=== PATIENT | female | born 1960 | race American Indian/Alaskan Native ===

== ENCOUNTER 2020-01-28 17:21 | Emergency (ER) | payer SELFPAY ==
[2020-01-28 18:10] VITALS: BP 168/91
--- NOTE | 2020-01-28 18:13 | Event Note ---
ED Screening Note ED Screening Note: pt was seen 8 days ago had a suture repair and a fx did not see orthopedic she has not changed the dressing since she had the repair done 8 days ago the dressing is adhered to the skin needs to soak and ACC mark unable to examine at this time This initial assessment/diagnostic orders/clinical plan/treatment(s) is/are subject to change based on patients health status, clinical progression and re- assessment by fellow clinical providers in the ED. Further treatment and workup at subsequent clinical providers discretion. Patient/guardian urged not to elope from the ED as their condition may be serious if not clinically assessed and managed. Initial orders include: ACC eval
[2020-01-28] MEDS ORDERED: CLINDAMYCIN 150 MG/ML VIAL 6 ML IM STA (20:51)
[2020-01-28] MEDS ORDERED: oxyCODONE /ACETAMINOPHEN 5-325MG TAB PO ONE (20:51)
--- NOTE | 2020-01-28 21:03 | Emergency Department Report ---
- General Chief Complaint: Laceration/Recheck/Suture Stated Complaint: STITCHES REMOVED Time Seen by Provider: 01/28/20 18:06 Source: patient Mode of arrival: Ambulatory Limitations: No Limitations - History of Present Illness Initial Comments: 59-year-old female past no significant past medical history was seen emerge department about 1 week ago for lawnmower blade verge finger which she sustained a fracture to her distal phalanx and laceration resulting in an open fracture she was discharged home with a dressing Keflex and pain pain medications. She was advised to keep on her dressing until to follow-up with the with the primary care in 1 week which she is decided come to emergency department as she cannot get an appointment with the primary care until next week. She reports throbbing pain to the finger and occasional drainage X-ray report from the previous visit is as follows [facility] [address] [place] [address] XRay Report Signed Patient: OFELIA FARMER MR#: [id number] : 1960 Acct:[id number] Age/Sex: 59 / F ADM Date: 01/20/20 Loc: ED Attending Dr: Ordering Physician: GENIA BARNES Date of Service: 01/20/20 Procedure(s): XR finger(s) 2+V RT Accession Number(s): [id number] cc: GENIA BARNES Fluoro Time In Minutes: RIGHT HAND 3 VIEWS INDICATION / CLINICAL INFORMATION: Compression injury COMPARISON: None available. FINDINGS: BONES / JOINT(S): Crushtype injury involving the tuft of the distal phalanx of the fourth digit. Fracture dislocation at the distal interphalangeal joint of the fourth digit with posterior avulsion. SOFT TISSUES: Soft tissue injury fourth digit with amputation of the tuft. ADDITIONAL FINDINGS: None. Signer Name: Neil Fuentes MD Signed: 01/20/2020 9:28 PM Workstation Name: [id number] Transcribed By: RAQUEL Dictated By: Neil Fuentes MD Electronically Authenticated By: Neil Fuentes MD Signed Date/Time: 01/20/208 - Related Data Previous Rx's Medication Instructions Recorded Last Taken Type Cephalexin [Keflex] 750 mg PO BID #10 capsule 01/21/20 Unknown Rx HYDROcodone/APAP 5-325 [[place] 1 each PO Q6HR PRN #12 tablet 01/21/20 Unknown Rx 5/325] Ibuprofen [Motrin] 800 mg PO Q8HR #40 tablet 01/21/20 Unknown Rx Chlorhexidine Gluconate 5 ml TP BID #240 liquid 01/28/20 Unknown Rx [Antiseptic Skin Cleanser] Clindamycin [Clindamycin CAP] 150 mg PO Q6HR #40 capsule 01/28/20 Unknown Rx traMADoL [Ultram] 50 mg PO Q6HR PRN #20 tablet 01/28/20 Unknown Rx Allergies Allergy/AdvReac Type Severity Reaction Status Date / Time No Known Allergies Allergy Unverified 01/20/20 20:08 ED Review of Systems ROS: Stated complaint: STITCHES REMOVED Other details as noted in HPI Comment: All other systems reviewed and negative ED Past Medical Hx - Past Medical History Previous Medical History?: No - Surgical History Past Surgical History?: Yes Additional Surgical History: gallstones removed. - Social History Smoking Status: Never Smoker Substance Use Type: None - Medications Home Medications: Home Medications Medication Instructions Recorded Confirmed Last Taken Type Cephalexin [Keflex] 750 mg PO BID #10 capsule 01/21/20 Unknown Rx HYDROcodone/APAP 5-325 [[place] 1 each PO Q6HR PRN #12 tablet 01/21/20 Unknown Rx 5/325] Ibuprofen [Motrin] 800 mg PO Q8HR #40 tablet 01/21/20 Unknown Rx Chlorhexidine Gluconate 5 ml TP BID #240 liquid 01/28/20 Unknown Rx [Antiseptic Skin Cleanser] Clindamycin [Clindamycin CAP] 150 mg PO Q6HR #40 capsule 01/28/20 Unknown Rx traMADoL [Ultram] 50 mg PO Q6HR PRN #20 tablet 01/28/20 Unknown Rx ED Physical Exam - General Limitations: No Limitations - Neck Neck exam: Present: normal inspection - Respiratory Respiratory exam: Present: normal lung sounds bilaterally - Extremities Exam Extremities exam: Present: tenderness (There is tenderness to the injured site at the distal tip the sutures are in place some serosanguineous drainage is coming from the wound no lymphangitis mild redness is noted is noted. Discoloration to the skin with some swelling and apparent sloughing of tissue. Pulses 2+). Absent: calf tenderness ED Course Vital Signs 01/28/20 18:08 Temperature 98.8 F Pulse Rate 82 Respiratory 18 Rate Blood Pressure 168/91 O2 Sat by Pulse 100 Oximetry ED Medical Decision Making - Medical Decision Making 59-year-old female with with open fracture ends and wound which needs to be addressed with wound management or orthopedic. Due to the nature of her fracture advised the patient of the importance of her following with the hand surgeon for definitive treatment. Will place a finger in a splint advised patient to change wound dressing daily. We will restart her on some antibiotics advised to utilize antiseptic hand diamond cleaner and reevaluate sutures for removal on the follow-up Critical care attestation.: If time is entered above; I have spent that time in minutes in the direct care of this critically ill patient, excluding procedure time. ED Disposition Clinical Impression: Finger fracture, Finger, open wounds, complicated, Open fracture of tuft of distal phalanx of finger Disposition: DC-01 TO HOME OR SELFCARE Is pt being admited?: No Does the pt Need Aspirin: No Condition: Stable Instructions: Finger Fracture (ED), Acute Wound Care (ED), Suture Care (ED) Prescriptions: Chlorhexidine Gluconate [Antiseptic Skin Cleanser] 5 ml TP BID #240 liquid Clindamycin [Clindamycin CAP] 150 mg PO Q6HR #40 capsule traMADoL [Ultram] 50 mg PO Q6HR PRN #20 tablet PRN Reason: Pain Referrals: HUMBERTO ARZATE MD [Staff Physician] - 2-3 Days [facility] [Provider Group] - 2-3 Days
== END 2020-01-28 21:45 | disposition home or self-care (01) ==
LOC: ED 17:21
DX: S62.634B Displaced fracture of distal phalanx of right ring finger, initial encounter for open fracture (principal); Z98.890 Other specified postprocedural states; Z79.1 Long term (current) use of non-steroidal anti-inflammatories (NSAID); Z79.2 Long term (current) use of antibiotics; Z79.899 Other long term (current) drug therapy; X58.XXXA Exposure to other specified factors, initial encounter; Y93.89 Activity, other specified; Y92.89 Other specified places as the place of occurrence of the external cause; Y99.8 Other external cause status
CPT/HCPCS: 96372